=== PATIENT | female | born 1985 | race Caucasian/White ===

== ENCOUNTER → 2020-07-17 | Outpatient (CLI) | payer BC ==
--- NOTE | 2020-07-17 15:40 | REP ---
INDICATION: ENLARGED LYMPHNODES. COMPARISON: None. TECHNIQUE: Real-time sonographic evaluation of right submandibular region performed in the region of the palpable lump. FINDINGS: At the site of the reported right submandibular palpable lump, there are 2 oval hypoechoic structures which most likely represent nonenlarged lymph nodes. These measure 8 x 5 x 6 mm and 9 x 4 x 5 mm. IMPRESSION: At the site of the palpable lump 2 hypoechoic nodules are seen less than 1 cm in diameter likely representing nonenlarged lymph nodes. <Electronically signed by Richard Griffin > 07/17/20 1537
== END ==
LOC: M RAD 14:57
PROVIDERS: ATTEND Family Medicine
DX: R59.0 Localized enlarged lymph nodes (principal)